=== PATIENT | female | born 1990 | race American Indian/Alaskan Native ===

== ENCOUNTER 2018-01-01 22:15 | Emergency (ER) | payer SELFPAY ==
[2018-01-01 23:04] VITALS: BP 130/67
[2018-01-01 23:29] LABS: Basophils % (Auto) 0.6 % (0.0-1.8); Eosinophils # (Auto) 0.1 K/mm3 (0.0-0.4); Eosinophils % (Auto) 1.4 % (0.0-4.3); Hematocrit 34.8 % (30.3-42.9); Hemoglobin 11.2 gm/dl (10.1-14.3); Lymphocytes # (Auto) 2.3 K/mm3 (1.2-5.4); Lymphocytes % (Auto) 34.9 % (13.4-35.0); Mean Corpuscular HGB Conc 32 % (30-34); Mean Corpuscular Hemoglobin 27 pg (28-32); Mean Corpuscular Volume 85 fl (79-97); Monocytes # (Auto) 0.5 K/mm3 (0.0-0.8); Monocytes % (Auto) 7.4 % (0.0-7.3); Platelet Count 298 K/mm3 (140-440); Red Blood Count 4.09 M/mm3 (3.65-5.03); Red Cell Distribution Width 15.1 % (13.2-15.2)
[2018-01-01 23:44] LABS: BUN/Creatinine Ratio 17; Blood Urea Nitrogen 10 mg/dL (7-17); Calcium 9.1 mg/dL (8.4-10.2); Hemolysis Index 1
[2018-01-02 01:01] LABS: Bacteria,Urine 1+ /HPF (Negative); Bilirubin,Urine NEG (Negative); Blood,Urine MOD (Negative); Color,Urine Amber (Yellow); Urobilinogen,Urine < 2.0 mg/dL (<2.0)
[2018-01-02 01:02] LABS: RBC,Urine > 182.0 /HPF (0.0-6.0)
[2018-01-02] MEDS ORDERED: MACROBID PO ONE (02:54)
--- NOTE | 2018-01-02 03:45 | Emergency Department Report ---
HPI - General Chief Complaint: Vaginal Bleeding Time Seen by Provider: 01/02/18 02:23 - HPI HPI: 27-year-old female presents to the emergency department with a complaint of some moderate to heavy vaginal bleeding, with clots, that has been going on since the middle of October. She says that she had this happen when she was younger to the point where she had significant anemia and has required transfusions. Patient says that sometimes she feels dizzy, fatigued, short of breath and thinks that may be her hemoglobin is low once again. She mostly came in for the vaginal bleeding. She does have an PACKING ATTENDANT but says she has not able to see them until she reapplied for Medicaid. She is going through about 7 -8 pads per day. No recent travel or sick contacts at home. She has not taken anything for her symptoms prior to presentation. ED Past Medical Hx - Past Medical History Previous Medical History?: Yes Additional medical history: Heavy Periods, low blood count - Surgical History Past Surgical History?: No - Social History Smoking Status: Current Every Day Smoker Substance Use Type: None - Medications Home Medications: Home Medications Medication Instructions Recorded Confirmed Last Taken Type No Known Home Medications [No 01/01/18 01/01/18 Unknown History Reported Home Medications] ED Review of Systems ROS: Stated complaint: VAGINAL BLEEDING Other details as noted in HPI Comment: All other systems reviewed and negative Constitutional: denies: chills, fever Eyes: denies: eye pain, eye discharge, vision change ENT: denies: ear pain, throat pain Respiratory: denies: cough, wheezing Cardiovascular: denies: chest pain, palpitations Gastrointestinal: denies: abdominal pain, nausea, diarrhea Genitourinary: other (vaginal bleeding). denies: urgency, dysuria, discharge Musculoskeletal: denies: back pain, joint swelling, arthralgia Skin: denies: rash, lesions Neurological: other (dizzy). denies: numbness Physical Exam - Physical Exam Vital Signs: Vital Signs 01/01/18 01/02/18 22:56 02:13 Temperature 97.5 F L Pulse Rate 64 Respiratory 18 16 Rate Blood Pressure 130/67 O2 Sat by Pulse 98 Oximetry Physical Exam: GENERAL: The patient is well-developed well-nourished. HENT: Normocephalic. Atraumatic. Patient has moist mucous membranes. EYES: Extraocular motions are intact. Pupils equal reactive to light bilaterally. NECK: Supple. Trachea is midline. CHEST/LUNGS: Clear to auscultation. There is no respiratory distress noted. HEART/CARDIOVASCULAR: Regular. There is no tachycardia. There is no murmur. ABDOMEN: Abdomen is soft, nontender. Patient has normal bowel sounds. There is no abdominal distention. SKIN: Skin is warm and dry. NEURO: The patient is awake, alert, and oriented. The patient is cooperative. The patient has no focal neurologic deficits. The patient has normal speech. MUSCULOSKELETAL: There is no tenderness or deformity. There is no limitation range of motion. There is no evidence of acute injury. ED Course Vital Signs 01/01/18 01/02/18 22:56 02:13 Temperature 97.5 F L Pulse Rate 64 Respiratory 18 16 Rate Blood Pressure 130/67 O2 Sat by Pulse 98 Oximetry ED Medical Decision Making - Lab Data Result diagrams: 01/01/18 23:14 01/01/18 23:14 - Medical Decision Making Patient mostly came in to evaluate her vaginal bleeding. She just had a child 4 months ago and therefore I suspect had multiple ultrasounds done and would know she had some history of fibroids. Her CBC, BMP were unremarkable for any etiology of her symptoms. Her hemoglobin was 11 and appeared stable and most likely was not the cause of any type of symptomatic anemia. Urinalysis does show a urinary tract infection. The patient was offered a transvaginal ultrasound to look into a source of her bleeding but we discussed the possibility that it is menorrhagia and/or dysfunctional uterine bleeding and that she will need to see an PACKING ATTENDANT. She was given a dose of Macrobid for her urinary tract infection she eloped prior to getting discharge paperwork or a prescription. - Differential Diagnosis UTI, menorrhagia, dysfunction uterine bleeding, fibroids, malignancy Critical Care Time: No Critical care attestation.: If time is entered above; I have spent that time in minutes in the direct care of this critically ill patient, excluding procedure time. ED Disposition Clinical Impression: Dysfunctional uterine bleeding Menorrhagia Qualifiers: Menorrahagia type: with irregular cycle Qualified Code(s): N92.1 - Excessive and frequent menstruation with irregular cycle UTI (urinary tract infection) Qualifiers: Urinary tract infection type: acute cystitis Hematuria presence: with hematuria Qualified Code(s): N30.01 - Acute cystitis with hematuria Disposition: ELOPED Is pt being admited?: No Condition: Stable Referrals: LENO KWON MD [Primary Care Provider] - 3-5 Days Time of Disposition: 03:46
== END 2018-01-02 03:35 | disposition left against medical advice (07) ==
LOC: ED 22:15
DX: N93.8 Other specified abnormal uterine and vaginal bleeding (principal); N92.1 Excessive and frequent menstruation with irregular cycle; N30.01 Acute cystitis with hematuria; R42 Dizziness and giddiness; F17.200 Nicotine dependence, unspecified, uncomplicated
CPT/HCPCS: 36415; 80048; 81001; 84703; 85025; 86850; 86900; 86901; 99283

== ENCOUNTER 2018-08-07 18:11 | Emergency (ER) | payer SELFPAY ==
[2018-08-07] MEDS ORDERED: NACL 0.9% 1000 ML 1,000 ML IV ONE (18:43)
[2018-08-07 20:01] LABS: Basophils % (Auto) 0.2 % (0.0-1.8); Eosinophils % (Auto) 0.1 % (0.0-4.3); Hematocrit 35.6 % (30.3-42.9); Hemoglobin 11.4 gm/dl (10.1-14.3); Lymphocytes # (Auto) 1.1 K/mm3 (1.2-5.4); Lymphocytes % (Auto) 9.4 % (13.4-35.0); Mean Corpuscular HGB Conc 32 % (30-34); Mean Corpuscular Hemoglobin 27 pg (28-32); Mean Corpuscular Volume 84 fl (79-97); Monocytes # (Auto) 0.5 K/mm3 (0.0-0.8); Monocytes % (Auto) 4.7 % (0.0-7.3); Platelet Count 249 K/mm3 (140-440); Red Blood Count 4.23 M/mm3 (3.65-5.03); Red Cell Distribution Width 16.9 % (13.2-15.2)
[2018-08-07 20:43] LABS: Alanine Aminotransferase 8 units/L (7-56); Albumin 4.5 g/dL (3.9-5); BUN/Creatinine Ratio 20; Blood Urea Nitrogen 10 mg/dL (7-17); Calcium 9.1 mg/dL (8.4-10.2); Hemolysis Index 10
[2018-08-07] MEDS ORDERED: ZOFRAN IV ONE (22:40)
--- NOTE | 2018-08-07 22:49 | Emergency Department Report ---
ED Female HPI - General Chief complaint: Abdominal Pain Stated complaint: ABD PAIN Time Seen by Provider: 08/07/18 22:37 Source: patient Mode of arrival: Ambulatory Limitations: No Limitations - History of Present Illness Initial comments: Patient 21 seizure -[place] female A3 LMP 07/16/2018 presents for vaginal spotting and abdominal pain x 2 days pain is 3/10 cramping spoting is pink scant no vaginal discharge no fever no chills , am nausea symptoms relieved by nothing, symptoms exacerbated by nothing , pt blood type is B Pos MD Complaint: vaginal bleeding, vaginal discharge Onset/Timin -: days(s) Location: suprapubic, LLQ, RLQ Radiation: LLQ, RLQ Severity: moderate Severity scale (0 -10): 4 Quality: cramping Consistency: constant Improves with: none Worsens with: none Are you Now?: No Last Menstrual Period: 07/16/18 EDC: 04/22/19 Associated Symptoms: vaginal bleeding, abdominal pain - Related Data Sexually active: Yes : 5 Para: 1 A: 3 Previous Rx's Medication Instructions Recorded Last Taken Type Nitrofurantoin Monohyd/M-Cryst 100 mg PO BID #14 capsule 01/02/18 Unknown Rx [Macrobid 100 mg Capsule] Acetaminophen [Tylenol] 650 mg PO QID PRN #30 capsule 08/08/18 Unknown Rx Ondansetron [Zofran Odt] 4 mg PO TID PRN #12 tab.rapdis 08/08/18 Unknown Rx Allergies Allergy/AdvReac Type Severity Reaction Status Date / Time No Known Allergies Allergy Verified 08/07/18 18:39 ED Review of Systems ROS: Stated complaint: ABD PAIN Other details as noted in HPI Constitutional: denies: chills, fever Eyes: denies: eye pain, eye discharge, vision change ENT: denies: ear pain, throat pain Respiratory: no symptoms reported Cardiovascular: denies: chest pain, palpitations Endocrine: no symptoms reported Gastrointestinal: abdominal pain. denies: nausea, diarrhea, constipation, hematemesis, melena, hematochezia Genitourinary: denies: urgency, dysuria, discharge Musculoskeletal: denies: back pain, joint swelling, arthralgia Skin: denies: rash, lesions Neurological: denies: headache, weakness, paresthesias Psychiatric: denies: anxiety, depression Hematological/Lymphatic: denies: easy bleeding, easy bruising ED Past Medical Hx - Past Medical History Previous Medical History?: Yes Additional medical history: Heavy Periods, low blood count - Surgical History Past Surgical History?: No - Social History Smoking Status: Current Every Day Smoker Substance Use Type: None - Medications Home Medications: Home Medications Medication Instructions Recorded Confirmed Last Taken Type Nitrofurantoin Monohyd/M-Cryst 100 mg PO BID #14 capsule 01/02/18 Unknown Rx [Macrobid 100 mg Capsule] Acetaminophen [Tylenol] 650 mg PO QID PRN #30 capsule 08/08/18 Unknown Rx Ondansetron [Zofran Odt] 4 mg PO TID PRN #12 tab.rapdis 08/08/18 Unknown Rx ED Physical Exam - General Limitations: No Limitations General appearance: alert, in no apparent distress - Head Head exam: Present: atraumatic, normocephalic - Eye Eye exam: Present: normal appearance - ENT ENT exam: Present: mucous membranes moist - Neck Neck exam: Present: normal inspection - Respiratory Respiratory exam: Present: normal lung sounds bilaterally. Absent: respiratory distress - Cardiovascular Cardiovascular Exam: Present: regular rate, normal rhythm. Absent: systolic murmur, diastolic murmur, rubs, gallop - GI/Abdominal GI/Abdominal exam: Present: soft, tenderness (mild superpubic tenderness to deep palpation), normal bowel sounds. Absent: rebound, bruit, hernia - Expanded GI/Abdominal Exam Expanded GI/Abdominal exam: Absent: psoas sign, obturator sign, heel tap sign, Segura's sign, Rovsing's sign, tenderness at Mcburney's Point, ascites - Rectal Rectal exam: Present: deferred - External exam: Present: other (exam deferred per patient ) - Extremities Exam Extremities exam: Present: normal inspection - Back Exam Back exam: Present: normal inspection - Neurological Exam Neurological exam: Present: alert, oriented X3 - Psychiatric Psychiatric exam: Present: normal affect, normal mood - Skin Skin exam: Present: warm, dry, intact, normal color. Absent: rash ED Course Vital Signs 08/07/18 18:40 Temperature 97.8 F Pulse Rate 70 Respiratory 16 Rate Blood Pressure 124/72 O2 Sat by Pulse 100 Oximetry ED Medical Decision Making - Lab Data Result diagrams: 08/07/18 19:33 08/07/18 19:33 - Radiology Data Radiology results: report reviewed, image reviewed normal study no evidence or IUP, recommend follow up studies and serial hcg. - Medical Decision Making Ultrasound OB N transvaginal normal ultrasound no evidence of IUP recommendation serial hCGs follow-up ultrasound patient has good BINDERY MACHINE OPERATOR follow- up will follow up with BINDERY MACHINE OPERATOR in 2-3 days return to ED since symptoms worsen plan at this time threatened miscarriage positive urine test positive blood test hCG 20 12/29/2026 . Exam possibility early ectopic discussed same with patient patient verbalizes agreement and understanding with same follow with BINDERY MACHINE OPERATOR for serial ultrasounds and hCGs patient given strict instructions to return the ED should symptoms worsen including increased vaginal bleeding and abdominal pain nausea vomiting fever chills patient was DC' d home in stable condition at this time pain is 0/10 at this time Critical care attestation.: If time is entered above; I have spent that time in minutes in the direct care of this critically ill patient, excluding procedure time. ED Disposition Clinical Impression: Threatened miscarriage in early Disposition: DC-01 TO HOME OR SELFCARE Is pt being admited?: No Does the pt Need Aspirin: No Condition: Stable Instructions: Abdominal Pain (ED) Prescriptions: Acetaminophen [Tylenol] 650 mg PO QID PRN #30 capsule PRN Reason: pain Ondansetron [Zofran Odt] 4 mg PO TID PRN #12 tab.rapdis PRN Reason: nausea and vomiting Referrals: PRIMARY CARE, [Primary Care Provider] - 3-5 Days Forms: Work/School Release Form(ED) Time of Disposition: 02:36
[2018-08-08 00:34] LABS: Bilirubin,Urine NEG (Negative); Blood,Urine SM (Negative); Color,Urine Yellow (Yellow); Mucus,Urine 3+ /HPF; Protein,Urine <15 mg/dL mg/dL (Negative)
--- NOTE | 2018-08-08 01:59 | Ultrasound Report ---
FINAL REPORT PROCEDURE: US OB TRANSVAGINAL TECHNIQUE: Real-time transvaginal sonography of the uterus, placenta, amniotic fluid, adnexa, and fetus was performed with image documentation. Measurements were obtained to determine age/size. M-mode Doppler was used to document heartbeat. CPT 00859 HISTORY: abd pain COMPARISON: No prior studies are available for comparison. FINDINGS: The uterus has a normal appearance. There is no evidence of a gestational sac. Both ovaries have a normal size and appearance. There is no evidence of free fluid in the lower pelvis. The findings may indicate multiple etiologies including or failure. Patient will need followup studies which could include serial beta HCG levels and perhaps repeat ultrasound. IMPRESSION: The uterus and both ovaries have a normal appearance. No evidence of a is identified on this study. The findings may indicate multiple etiologies including failure. Followup studies will be needed which could include serial beta HCG levels and repeat ultrasound.
--- NOTE | 2018-08-08 02:00 | Ultrasound Report ---
FINAL REPORT PROCEDURE: US OB < = 14 WEEKS FETUS TECHNIQUE: Real-time transabdominal sonography of the uterus, placenta, amniotic fluid, adnexa, and fetus was performed with image documentation. Measurements were obtained to determine age/size. M-mode Doppler was used to document heartbeat. CPT 05450 HISTORY: abd pain COMPARISON: No prior studies are available for comparison. FINDINGS: The uterus and both ovaries have normal appearance. The endometrial pattern is normal. There is no evidence of an intrauterine . No pregnancies identified on this study. The findings may indicate multiple etiologies including failure. Followup studies should be entertained will, this could include serial beta HCG levels and perhaps repeat ultrasound. IMPRESSION: The uterus and ovaries have normal appearance. No evidence of intrauterine . The findings may indicate multiple etiologies including failure. Followup studies may be needed which could include serial beta HCG studies and possibly repeat ultrasound.
[2018-08-08 02:55] VITALS: BP 121/65
== END 2018-08-08 02:54 | disposition home or self-care (01) ==
LOC: ED 18:11
DX: O20.0 Threatened abortion (principal); F17.200 Nicotine dependence, unspecified, uncomplicated; Z3A.01 Less than 8 weeks gestation of pregnancy
CPT/HCPCS: 36415; 76801; 76817; 80053; 81001; 84702; 84703; 85025; 96374; 99284; J2405; J7030